=== PATIENT | female | born 2000 | race Caucasian/White ===

== ENCOUNTER 2021-10-13 00:33 | Day surgery (SDC) | payer BC, SELFPAY ==
[2021-10-05 15:33] VITALS: BMI 22.4
--- NOTE | 2021-10-13 12:00 | P.PNAN_ITS ---
Anes - Initial Pre Proc Eval Procedure: Operation Date: 10/13/21 13:30 Proposed Procedures p Colonoscopy - Giovany Huffman MD Date/Time: 10/13/21 12:00 Surgeon: Giovany Huffman MD Pre Op Diagnosis: abdominal pain, constipation Patient Data Age: 21 Gender: F Height: 1.65 m Weight: 61.3 kg Allergies Allergy/AdvReac Type Severity Reaction Status Date / Time Penicillins AdvReac Unknown Unknown Verified 10/05/21 15:42 Home Medications Medication Instructions Recorded Confirmed Type CBD OIL 2 drp BYMOUTH DAILY 07/21/21 10/05/21 History Echinacea angustifolia root 125 mg 20 mg PO DAILY 07/21/21 10/05/21 History tablet Saccharomyces boulardii 250 mg 250 mg PO DAILY 07/21/21 10/05/21 History capsule (Digest Probiotic (S.boulardii)) norethindrone acetate 1 mg-ethinyl 1 tablet PO DAILY #84 tabs 08/25/21 10/05/21 Rx estradiol 20 mcg tablet (Microgestin) sodium sul 1.479 gram-potas ch See Rx Instructions PO PER PKG DIR 10/04/21 10/05/21 Rx 0.188 gram-magnes sul 0.225 gram #24 tabs tablet (Sutab) Patient hx anesthesia problems: none Family hx anesthesia problems: none Results Review: All pre-operative results and documents have been reviewed as part of the pre- operative evaluation. [facility] Past Medical History Medical History (Updated 09/22/21 @ 10:21 by JODI Posey) Bloating Constipation Situational anxiety Family History Family History Mother Depression Grandparent Family history of primary malignant neoplasm of liver Social History Social History (Updated 08/25/21 @ 09:59 by Dorinda Lyon MA) Years smoked: 1 Smoking status: Former smoker Tobacco type: cigarettes Alcohol intake: current Drinks per week: 2 Alcohol use details: 4 glasses of wine every other week Substance use: never Substance use type: does not use Living arrangements: with family Additional occupation/education comments: coffee shop Gender identity (if verbalized by the patient): Female Sexual Orientation (if Verbalized by the Patient): Straight or Heterosexual Spiritual care concerns: No Anes - Eval Final PreProcedure Day of Procedure 10/13/21 12:00 Patient weight: normal Heart: regular rate and rhythm Lungs: clear to auscultation Airway: Mallampati scale class II Neurological: alert and oriented Last oral intake: >/= 8 hours ASA classification: II Emergent: no Anesthetic plan: proceed Anesthesia type and monitoring: general GIVS and standard monitoring Results Review: All pre-operative results and documents have been reviewed as part of the pre- operative evaluation. Informed Consent: The patient's anesthetic plan and its attendant risks and benefits were discussed with the patient/family/POA. Questions were solicited and answers provided to the satisfaction of the patient/family/POA.
[2021-10-13 12:21] VITALS: PULSE 78; RESP 18; TEMP 36.3; O2SAT 100; BMI 22.0
--- NOTE | 2021-10-13 12:22 | WPDHPUPDATE1 ---
History and Physical Update Update Date/Time: 10/13/21 12:22 History and Physical has been reviewed, including an updated exam of the patient. There are NO changes in the patient's condition. Risks, benefits, and alternatives have been discussed and questions answered. Patient agrees to proceed with procedure.
[2021-10-13] MEDS: LACTATED RINGERS 1,000 ML 150 ML IV CONT (12:24)
[2021-10-13 12:39] VITALS: BP 91/46; PULSE 70; RESP 17; O2SAT 99
[2021-10-13 12:49] VITALS: BP 96/56; PULSE 69; RESP 18; O2SAT 100
[2021-10-13 12:59] VITALS: BP 120/76; PULSE 72; RESP 21; O2SAT 100
== END 2021-10-13 13:12 | disposition home or self-care (01) ==
PROVIDERS: PCP Family Medicine; Visit Provider Internal Medicine Gastroenterology
PROC: 0DJD8ZZ Inspection of Lower Intestinal Tract, Via Natural or Artificial Opening Endoscopic (ICD-10-PCS; CPT 45378; principal; 2021-10-13 13:30)
DX: R10.30 Lower abdominal pain, unspecified (principal); Z87.891 Personal history of nicotine dependence
CPT/HCPCS: 45378; J2001; J2704; J7120